=== PATIENT | female | born 1990 | race Caucasian/White ===

== ENCOUNTER 2017-12-13 12:29 | Emergency (ER) | payer MEDICAID ==
[2017-12-13 12:38] VITALS: TEMP 97.9
--- NOTE | 2017-12-13 14:13 | EDPHY ---
H & P Time Seen by Provider: 12/13/17 13:41 HPI/ROS: CHIEF COMPLAINT: Dental abscess, nausea HISTORY OF PRESENT ILLNESS: 27-year-old female with Crohn's disease presents with nausea and dental abscess. Onset of right jaw pain 2 weeks ago. She has seen by her dentist and diagnosed with a dental abscess of right upper molar tooth (by Xray). She has been on amoxicillin for a few days, though feels that the dental pain has increased. She now has nausea and intermittent dizziness. She was also diagnosed with a sinus infection. She continues to have nasal congestion and pain right cheek area. No fever. She also complains of anxiety. She has a history of anxiety and previously was on Lexapro, but did not like the way it made her feel. She had an appointment with her new primary care physician this afternoon, but she missed the appointment. REVIEW OF SYSTEMS: Constitutional: No fever, no chills Eyes: No visual changes ENT: No sore throat Respiratory: No cough, no shortness of breath Cardiac: No chest pain Genitourinary: no dysuria Musculoskeletal: No leg pain or swelling Skin: No rash Neurological: No headache, no weakness Psychiatric: Anxiety Past Medical/Surgical History: Crohn's disease Anxiety Social History: No recent alcohol supply aide Smoking Status: Current every day smoker Physical Exam: General Appearance: Alert, pleasant Eyes: Pupils equal and round, no conjunctival pallor or injection ENT, Mouth: Mucous membranes moist, tenderness over the right upper 2nd molar, no gum swelling or tenderness, no facial tenderness or swelling Neck: Normal inspection, no adenopathy Respiratory: Lungs are clear to auscultation Cardiovascular: Regular rate and rhythm Gastrointestinal: Abdomen is soft and nontender Neurological: A&O, nonfocal, normal gait Skin: Warm and dry Extremities: Normal inspection Psychiatric: Mood and affect normal Constitutional: Initial Vital Signs Temperature (C) 36.6 C 12/13/17 12:33 Heart Rate 68 12/13/17 12:33 Respiratory Rate 16 12/13/17 12:33 Blood Pressure 119/83 H 12/13/17 12:33 O2 Sat (%) 98 12/13/17 12:33 O2 Delivery Mode Room Air Allergies/Adverse Reactions: sensitive to some antibx Allergy (Mild, Uncoded 12/13/17 12:38) GI Home Medications: Medication Instructions Recorded Amoxicillin Trihydrate [Amoxil 250 250 mg PO Q8 12/13/17 mg CAP (*)] Clindamycin HCl [Clindamycin] 300 mg PO TID #30 cap 12/13/17 Mometasone/Formoterol [Dulera 100 13 gm IH 12/13/17 Mcg/5 Mcg Inhaler] Omeprazole 40 mg PO 12/13/17 Ondansetron Odt [Zofran Odt 4 mg 4 mg PO Q4 PRN #6 tab 12/13/17 (*)] predniSONE 5 mg PO DAILY 12/13/17 Medical Decision Making ED Course/Re-evaluation: This patient presents with worsening right-sided facial pain after recent diagnosis of dental abscess. Physical exam is normal, except for some dental tenderness. I will change her antibiotic to clindamycin. She requests IV clindamycin, given nausea. For this reason an IV was established, IV normal saline 1 L, Zofran 4 mg IV and clindamycin 300 mg IV given. She also has significant anxiety and Ativan 0.5 mg IV given. She feels much better after IV Ativan. She will follow up with her primary care physician for treatment of underlying anxiety disorder. There is no evidence of Crohn's exacerbation; abdomen is soft and nontender and she has no vomiting or diarrhea. Differential Diagnosis: Differential diagnosis includes does not limited to Crohn's exacerbation, facial cellulitis, worsening dental abscess, sinusitis, severe dehydration. - Data Points Medications Given: Discontinued Medications Sodium Chloride (Ns) 1,000 mls @ 0 mls/hr IV EDNOW ONE; Wide Open PRN Reason: Protocol Stop: 12/13/17 14:18 Last Admin: 12/13/17 14:59 Dose: 1,000 mls Clindamycin 300 mg/ Sodium (Chloride) 102 mls @ 204 mls/hr IV EDNOW ONE PRN Reason: Protocol Stop: 12/13/17 14:47 Last Admin: 12/13/17 14:58 Dose: 102 mls Lorazepam (Ativan Injection) 0.5 mg IVP EDNOW ONE Stop: 12/13/17 14:19 Last Admin: 12/13/17 14:39 Dose: 0.5 mg Ondansetron HCl (Zofran) 4 mg IVP EDNOW ONE Stop: 12/13/17 14:18 Last Admin: 12/13/17 14:39 Dose: 4 mg Departure - Departure Disposition: Home, Routine, Self-Care Clinical Impression: Dental abscess, Anxiety Condition: Good Instructions: Clindamycin (By mouth), Ondansetron (By mouth), Dental Abscess ( ED) Additional Instructions: Tylenol 650 mg every 4 hr as needed for pain. Referrals: Lanny Garg MD [[facility] [place] Primary Care Provider] - As per Instructions (Call to make an appointment.) Prescriptions: Clindamycin HCl [Clindamycin] 300 mg PO TID #30 cap Ondansetron Odt [Zofran Odt 4 mg (*)] 4 mg PO Q4 PRN #6 tab PRN Reason: Nausea
[2017-12-13] MEDS ORDERED: NS 1,000 ML IV ONE (14:17)
[2017-12-13] MEDS ORDERED: ONDANSETRON 4 MG/2 ML VIAL IVP ONE (14:17)
[2017-12-13] MEDS ORDERED: CLINDAMYCIN 300 MG in NS 100 ML IV ONE (14:18)
[2017-12-13] MEDS ORDERED: LORazepam 2 MG/ML INJ IVP ONE (14:18)
[2017-12-13 15:39] VITALS: BP 99/66; PULSE 72; RESP 13; O2SAT 98
== END 2017-12-13 15:38 | disposition home or self-care (01) ==
DX: K04.7 Periapical abscess without sinus (principal); F41.9 Anxiety disorder, unspecified; F17.200 Nicotine dependence, unspecified, uncomplicated
CPT/HCPCS: 96374; J2060; J2405